=== PATIENT | male | born 1970 | race Caucasian/White ===

== ENCOUNTER 2024-03-28 09:26 | Outpatient (CLI) | payer BC, SELFPAY ==
--- NOTE | 2024-03-28 11:07 | W.ANESCHARGE ---
Anesthesia Charges Start Date/Time Anesthesia Start Date: 03/28/24 Anesthesia Start Time: 10:41 Stop Date/Time Anesthesia Stop Date: 03/28/24 Anesthesia Stop Time: 11:05
--- NOTE | 2024-03-28 11:41 | W.ANESCHARGE ---
Anesthesia Charges Start Date/Time Anesthesia Start Date: 03/28/24 Anesthesia Start Time: 10:41 Stop Date/Time Anesthesia Stop Date: 03/28/24 Anesthesia Stop Time: 11:05
== END 2024-03-28 09:27 | disposition home or self-care (01) ==
PROVIDERS: PCP Student in an Organized Health Care Education/Training Program; Visit Provider Internal Medicine Gastroenterology
DX: Z86.0101 Personal history of adenomatous and serrated colon polyps (principal); D12.8 Benign neoplasm of rectum
CPT/HCPCS: 00811; 45380; 88305; J2704

== ENCOUNTER 2024-10-18 15:00 | Emergency (ER) | payer OTHER, BC, SELFPAY ==
--- OUTSIDE RECORDS SUMMARY | 2024-10-18 15:02 | XMS_ITS | Clinical Summary ---
Author Organization [facility] Address [address] [place] [address] Care Team Providers Care Telephone Order Clerk Name Role Phone Melinda Lomas Primary Care Provider [phone] Allergies Active Allergy Reactions Criticality Noted Date Comments Lisinopril Cough Medium 08/12/2020 Medications losartan (COZAAR) 100 mg tabletIndications: Essential hypertension Take 1 Tablet (100 mg) by mouth once daily. 90 Tablet 3 12/25/19 24 Active acetaminophen 500 mg tabletIndications: S/P total right hip arthroplasty Take 2 Tablets (1,000 mg) by mouth every 6 hours. Max acetaminophen dose: 4000mg in 24 hrs. 200 Tablet 10/10/19 25 Active aspirin enteric coated 81 mg tabletIndications: S/P total right hip arthroplasty Take 1 Tablet (81 mg) by mouth two times daily with meals. Begin morning after surgery. Take for 6 weeks following surgery, do not stop taking this medication until 6 weeks after surgery for DVT/ blood clot prevention. 84 Tablet 10/10/19 25 025 Active celecoxib (CeleBREX) 100 mg capsuleIndications :S/P total right hip arthroplasty Take 1 Capsule (100 mg) by mouth two times daily with meals. Take with food. Do not take OTC NSAIDS (Ibuprofen, Aleeve, Naproxen, Motrin) while taking Celebrex. Take Protonix while taking Celebrex. 60 Capsule 10/10/19 25 Active oxyCODONE 5 mg immediate release tabletIndications: S/P total right hip arthroplasty Take 1 Tablet (5 mg) by mouth every 4 hours if needed for Pain. Take for severe post-operative pain (7-10/10). Do not take with Tramadol. 20 Tablet 10/10/19 25 Active pantoprazole 40 mg delayed-release tabletIndications: S/P total right hip arthroplasty Take 1 Tablet (40 mg) by mouth before breakfast. Take Protonix while taking Celebrex. May discontinue Protonix use once you stop taking Celebrex. 30 Tablet 10/10/19 25 Active sennosides-docusat e (Senokot-S) (8.6-50 mg) tabletIndications: S/P total right hip arthroplasty Take 1-3 Tablets by mouth 2 times daily if needed for Constipation. Take as needed for constipation. Hold for loose stool. Start with taking 1 tablet 2 times a day. If no bowel movement, increase to 2 tablets 2 times a day. If no bowel movement again, increase to 3 tablets 2 times a day. If greater than 2 bowel movements in 24 hours at any point, reduce to 1 tablet 2 times a day. 100 Tablet 10/10/19 25 Active traMADoL 50 mg tabletIndications: S/P total right hip arthroplasty Take 1 Tablet (50 mg) by mouth every 6 hours if needed for Pain. Take for moderate post-operative pain (3-6/10). Do not take with Oxycodone. 30 Tablet 10/10/19 25 Active ondansetron 4 mg disintegrating tabletIndications: S/P total right hip arthroplasty Place 1 Tablet (4 mg) on the tongue every 8 hours if needed for Nausea/Vomiting. 20 Tablet 10/10/19 25 Active cefadroxil 500 mg capsuleIndications :S/P total right hip arthroplasty Take 1 Capsule (500 mg) by mouth two times daily for 7 days. For infection prevention. 14 Capsule 10/10/19 25 025 Active Problems Problem Noted Date Diagnosed Date Avascular necrosis of bone of right hip 10/14/19 25 Suspected avascular necrosis of bone of hip, rig ht 08/05/2024 Kidney stones 08/23/2021 Overview (08/23/2021): Multiple bilateral stones - 08/2021 Adenomatous colon polyp 06/18/2020 Overview (04/01/2024): Colonoscopy 06/2020 11 mm adenoma, repeat in 3 years Colonoscopy 03/2024 hyperplastic polyp, repeat in 5 years Essential hypertension 06/03/2020 Renal stones 04/16/2017 Overview (05/27/2020): passed stones x 2, one lithotripsy Encounters Date Type Department Care Team Description 10/13/2024 8:20 AM CDT - 10/13/2024 11:59 PM CDT Hospital Encounter Jean Pierre Lund, 10/13/2024 Lab Requisition [facility] [phone] Jean Pierre Lund, 10/13/2024 Surgery [facility] [address] [facility] [address] [place] [address] Jean Pierre Lund DO RIGHT ANTERIOR TOTAL HIP ARTHROPLASTY 10/09/2024 Telephone [facility] [address] [facility] [address] [place] [address] Dorene Gregory PA Pharmacist Medication Management (cefadroxil 500 mg capsule//Sig: Take 1 Capsule (500 mg) by mouth two times daily for 7 days. For infection prevention./) 10/09/2024 Telephone [facility] [address] [address] Dorene Gregory PA Surgical Followup (post-op medication management/) 10/07/2024 1:10 PM CDT Office Visit [facility] [address] [place] [address] Melinda Lomas PA Preoperative Exam (Right Hip. 10/13/24, ) 10/07/2024 Travel 08/25/2024 Telephone [facility] [address] [facility] [address] [place] [address] Jean Pierre Lund DO Prior Authorization (AL ARTHRP ACETBLR/PROX FEM PROSTC AGRFT/ALGRFT - WAITING ON PAYER DECISION) 08/21/2024 Telephone [facility] [address] [facility] [address] [place] [address] Jean Pierre Lund, Prior Authorization (RIGHT HIP SURGICAL PROCEDURE, WORK COMP ADJUSTOR NEEDING ADDITIONAL INFORMATION) 08/19/2024 Orders Only [facility] [address] [facility] [place] [address] Melinda Lomas PA 1 scan: (1-Ord) NFLD-EKG-5.2.25 08/15/2024 1:10 PM CDT Office Visit [facility] [address] [facility] [place] [address] Melinda Lomas PA Preoperative Exam (09/01/24 Right hip replacement, Dr. Lund [phone]) 08/15/2024 Travel 08/12/2024 Telephone [facility] [address] [address] Jean Pierre Lund, 08/07/2024 2:45 PM CDT Ancillary Procedure [facility] [address] [address] 08/07/2024 Travel 08/05/2024 2:35 PM CDT Ancillary Procedure [address] [address] 08/05/2024 2:30 PM CDT Ancillary Procedure [address] [address] 08/05/2024 2:15 PM CDT Office Visit [facility] [address] [place] [address] Jean Pierre Lund, 08/05/2024 Telephone [facility] [address] [place] [address] Jean Pierre Lund, Surgery Scheduled 08/05/2024 Travel 08/01/2024 Telephone [facility] [address] [place] [address] Melinda Lomas PA Work Note (MRI referral note/) 07/30/2024 Telephone [facility] [address] [facility] [place] [address] Melinda Lomas PA Results (LABS ) 07/28/2024 3:30 PM CDT Ancillary Procedure [facility] [address] [facility] [address] 07/28/2024 2:25 PM CDT Office Visit [facility] [address] [place] [address] Melinda Lomas PA Occ Med (06/03/24 Slipped on steps putting ice out. Fell and Hit right hip pain as well as right knee pain. Pain radiates on inside, Knee just aches ) 07/28/2024 Travel from Last 3 Months Immunizations Immunization Administration Dates Next Due COVID-19 vaccine (TheraVida 30mcg/0.3mL) P F, MDV 08/03/2020,07/13/2020 Influenza, IIV4 01/31/2022 Influenza, IIV4 (=>6mos) MDV 03/26/2021,01/29/20 20 Tdap 10/31/2016 Zoster (Shingrix-RZV, recombinant) 11/12/2020, Family History Medical History Relation Name Comments Irregular heart beat Brother Lung disease Father at 65 resp iratory failure No Known Problems Mother No Known Problems Sister 1 6 sisters Relation Name Status Comments Brother Alive Father (Age 65) respirator y failure Mother Alive Sister 1 Alive Sister 2 Alive Sister 3 Alive Sister 4 Alive Sister 5 Alive Sister 6 Alive Social History Tobacco Use Types Packs/Day Years Used Date Smoking Tobacco: Former Cigarettes 0.3 28 0 05/24/1992 - 05/24/2020 Smokeless Tobacco: Never Tobacco Cessation:Counseling Given: Yes Comments:one pack/week Alcohol Use Standard Drinks/Week Comments Yes 6 (1 standard drink = 0.6 oz pur e alcohol) moderate PHQ-2 Answer Date Recorded PHQ-2 TOTAL SCORE 2 12/25/2023 Social Connections Answer Date Recorded Do you often feel lonely or isolated from those around you? 0 12/25/2023 Financial Resource Strain Answer Date R ecorded Difficulty of Paying Living Expenses 3 12/25/2023 Difficulty of Paying Living Expenses Not on file 12/25/2023 Food Insecurity Answer Date Recorded Do you worry your food will run out before you are able to buy more? 1 12/25/2023 Transportation Needs Answer Date Record ed Does lack of transportation keep you from medica l appointments? 1 12/25/2023 Does lack of transportation keep you from work, meetings or getting things that you need? 1 12/25/2023 Housing Stability Answer Date Recorded What is your housing situation today? 1 12/25/2023 Utilities Answer Date Recorded Do you have trouble paying f or utilities (for example, heat, electricity, water, phone)? 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 Not on file Not on file Not on file Obstetrics History Last Filed Vital Signs Vital Sign Reading Time Taken Comments Blood Pressure 122/80 10/07/2024 1:03 PM CDT Pulse 72 10/07/2024 1:03 PM CDT Temperature 36.8 C (98.3 F) 07/14/2021 4:44 PM CDT Respiratory Rate 16 07/14/2021 4:44 PM CDT Oxygen Saturation 98% 10/07/2024 1:03 PM CDT Inhaled Oxygen Concentration - - Weight 99.8 kg (220 lb) 10/07/2024 1:03 PM CDT Height 190.5 cm (6' 3) 12/25/2023 10:51 AM CDT Body Mass Index 27.5 12/25/2023 10:51 AM CDT Plan of Treatment Upcoming Encounters Date Type Department Care Team (Late st Contact Info) Description 10/28/2024 2:00 PM CDT Office Visit [facility] [address] [facility] [address] [place] [address] [place] [address] [place] [address] 12/09/2024 1:15 PM CDT Office Visit [facility] [address] [place] [address] Jean Pierre LundDO alexandra [address] [place] [address] Health Maintenance Due Date Last Done Comments Hepatitis B series for 19+ ( 1 of 3 - 19+ 3-dose series) 1988 Pneumococcal series for age 50+ (1 of 1 - PCV) 10/23/2019 COVID-19 vaccine series (2023- season) 2023 01/18/2023, 01/25/2022, 04/25/2021, Additional history exists Influenza Vaccine (#1) 2024 , 03/26/2021, 01/29/2020 BMI (ht and wt on same day) for age 18+ 12/24/2024 12/25/2023, 12/04/2022, 08/23/2021, Additional history exists Depression screening for age 12+ 12/25/2024 12/26/2023, 12/26/2023, 12/25/2023, Additional history exists Tetanus booster 10/31/2026 10/31/2016 Lipids for age 45-75 12/24/2028 12/25/2023, 06/03/19 21 Colonoscopy through age 75 03/28/202903/28, 03/28/2024, 03/28/2024, Additional history exists Zoster (shingles) series for age 50+ Completed 11/12/2020, 06/03/2020 Hepatitis C screening for ag e 18-79 Completed 10/18/2021 HIV for age 15-65 Completed 12/25/2023 Procedures Procedure Name Priority Date/Time Associated Diagnosis Comments LAB TRACKING EVENT Routine 10/13/2024 10 :27 AM CDT COMP METABOLIC PANEL Routine 10/07/2024 1:30 PM CDT Preop examination CBC WITH AUTO DIFFERENTIAL Routine 10/07/2024 1:30 PM CDT Preop examination HEMOGLOBIN A1C Routine 10/07/2024 1:30 PM CDT Preop examination APTT Routine 10/07/2024 1:30 PM CDT Preop examination PROTIME-INR Routine 10/07/2024 1:29 PM CDT Preop examination EKG 12 LEAD Routine 08/19/2024 11:10 AM CDT Preop examination AL READING EKG - NO CHARGE, COMP ONLY Routine 08/19/2024 11:09 AM CDT Preop examination COMP METABOLIC PANEL Routine 08/15/2024 2:00 PM CDT Preop examination CBC WITH AUTO DIFFERENTIAL Routine 08/15/2024 2:00 PM CDT Preop examination HEMOGLOBIN A1C Routine 08/15/2024 2:00 PM CDT Preop examination APTT Routine 08/15/2024 2:00 PM CDT Preop examination PROTIME-INR Routine 08/15/2024 1:59 PM CDT Preop examination MR HIP RIGHT WO Routine 08/07/2024 3:06 PM CDT Hip pain, right XR PELVIS 1 VIEW Routine 08/05/2024 2:35 PM CDT Right hip pain XR LEG LENGTH Routine 08/05/2024 2:34 PM CDT Right hip pain XR HIP 2 VIEWS WO PELVIS RIGHT Routine 07/28/2024 3:13 PM CDT Hip pain, right SCAN-COLONOSCOPY 03/28/2024 12:0 0 AM SQL MANAGER ANTI HIV 1/2 Routine 12/25/2023 11:43 AM CDT Encounter for screening for HIV LIPID PANEL W REFLEX MEASURED LDL Routine 12/25/2023 11:43 AM CDT Encounter for screening for lipoid disorders ANTI HCV Routine 10/18/2021 1:55 PM CDT Need for hepatitis C screening test SURGICAL PROCEDURE (TYPE PROCEDURE DESCRIPTION BELOW) Tier 4 Avascular necrosis of hip, right (HC) from Last 3 Months or Most Recently Relevant to Health Maintenance Results * LAB TRACKING EVENT (10/13/2024 10:27 AM CDT) Other (Other) Client Collect / Unknown 10/13/2024 10:27 AM CDT 10/13/2024 5:41 PM CDT Jean Pierre Lund DO LAB BILL ONLY Final Resu lt [facility] [address] [place] [id number], * HEMOGLOBIN A1C (10/07/2024 1:30 PM CDT) Only the most recent of2 resultswithin the time period is included. HEMOGLOBIN A1C 5.3 <5.7 % [facility] Comment: For the purpose of screening for the presence of diabetes: <5.7% Consistent with the absence of diabetes 5.7-6.4% Consistent with increased risk for diabetes (prediabetes) > or =6.5% Consistent with diabetes This assay result is consistent with a decreased risk of diabetes. Currently, no consensus exists regarding use of hemoglobin A1c for diagnosis of diabetes in children. According to [place] Diabetes [employer] (ADA) guidelines, hemoglobin A1c <7.0% represents optimal control in non- diabetic patients. Different metrics may apply to specific patient populations. Standards of Medical Care in Diabetes(ADA). Blood BLOOD SPECIMEN / Unknown 10/07/2024 1:30 PM CDT 10/07/2024 1:30 PM CDT Melinda FLORES CHEMISTRY Final Res ult [employer] [facility] [address] [place] [address], [place] [phone] [facility] [address] [place] [address] * APTT (10/07/2024 1:30 PM CDT) Only the most recent of2 resultswithin the time period is included. [facility] PARTIAL THROMBOPLASTIN TIME, ACTIVATED 29 23 - 32 sec [employer] Comment: This test has not been validated for monitoring unfractionated heparin therapy. For testing that is validated for this type of therapy, please refer to the Heparin Anti-Xa assay (test code 45494). For additional information, please refer to http://education.[employer]/faq/OMP784 (This link is being provided for informational/educational purposes only.) Blood BLOOD SPECIMEN / Unknown 10/07/2024 1:30 PM CDT 10/07/2024 1:30 PM CDT Melinda FLORES HEMATOLOGY Final Res ult [employer] [facility] [address] [place] [address], [facility] [address] [place] [address] * CBC AND DIFFERENTIAL (10/07/2024 1:30 PM CDT) Only the most recent of2 resultswithin the time period is included. [facility] WHITE BLOOD CELL COUNT 4.9 3.8 - 10.8 Thousand/u L [facility] RED BLOOD CELL COUNT 4.27 4.20 - 5.80 Million/uL [facility] HEMOGLOBIN 13.7 13.2 - 17.1 g/dL [facility] HEMATOCRIT 39.9 38.5 - 50.0 % [facility] MCV 93.4 80.0 - 100.0 fL [facility] MCH 32.1 27.0 - 33.0 pg [facility] MCHC 34.3 32.0 - 36.0 g/dL [facility] Comment: For adults, a slight decrease in the calculated MCHC value (in the range of 30 to 32 g/dL) is most likely not clinically significant; however, it should be interpreted with caution in correlation with other red cell parameters and the patient's clinical condition. RDW 12.3 11.0 - 15.0 % [facility] PLATELET COUNT 244 140 - 400 Thousand/u L [facility] MPV 10.4 7.5 - 12.5 fL [facility] ABSOLUTE NEUTROPHILS 2,808 1,500 - 7,800 cells/uL [facility] ABSOLUTE LYMPHOCYTES 1,705 850 - 3,900 cells/uL [facility] ABSOLUTE MONOCYTES 299 200 - 950 cells/uL [facility] ABSOLUTE EOSINOPHILS 49 15 - 500 cells/uL [facility] ABSOLUTE BASOPHILS 39 0 - 200 cells/uL [facility] NEUTROPHILS 57.3 % [facility] LYMPHOCYTES 34.8 % [facility] MONOCYTES 6.1 % [employer] [facility] [place] EOSINOPHILS 1.0 % [facility] BASOPHILS 0.8 % [facility] Blood BLOOD SPECIMEN / Unknown 10/07/2024 1:30 PM CDT 10/07/2024 1:30 PM CDT Melinda FLORES HEMATOLOGY Final Res ult [employer] [facility] [address] [place] [address], [facility] [address] [place] [address] * (ABNORMAL) COMP METABOLIC PANEL (10/07/2024 1:30 PM CDT) Only the most recent of2 resultswithin the time period is included. Pathologist [facility] GLUCOSE 103(H) 65 - 99 mg/dL [facility] Comment: Fasting reference interval For someone without known diabetes, a glucose value between 100 and 125 mg/dL is consistent with prediabetes and should be confirmed with a follow-up test. UREA NITROGEN (BUN) 15 7 - 25 mg/dL [facility] CREATININE 0.82 0.70 - 1.30 mg/dL [facility] EGFR 104 > OR = 60 mL/min/1. 73m2 [facility] BUN/CREATININE RATIO SEE NOTE: - (calc) [facility] Comment: Not Reported: BUN and Creatinine are within reference range. SODIUM 140 135 - 146 mmol/L [facility] POTASSIUM 4.4 3.5 - 5.3 mmol/L [facility] CHLORIDE 105 98 - 110 mmol/L [facility] CARBON DIOXIDE 29 20 - 32 mmol/L [facility] CALCIUM 9.3 8.6 - 10.3 mg/dL [facility] PROTEIN, TOTAL 6.8 6.1 - 8.1 g/dL [facility] ALBUMIN 4.5 3.6 - 5.1 g/dL [facility] GLOBULIN 2.3 1.9 - 3.7 g/dL (calc) [facility] ALBUMIN/GLOBULIN RATIO 2.0 1.0 - 2.5 (calc) [facility] BILIRUBIN, TOTAL 0.8 0.2 - 1.2 mg/dL [facility] ALKALINE PHOSPHATASE 77 35 - 144 U/L [facility] AST 19 10 - 35 U/L [facility] ALT 24 9 - 46 U/L [facility] Blood BLOOD SPECIMEN / Unknown 10/07/2024 1:30 PM CDT 10/07/2024 1:30 PM CDT us Melinda FLORES CHEMISTRY Final Res ult [employer] [facility] [address] [place] [address], [facility] [address] [place] [address] * PROTIME-INR (10/07/2024 1:29 PM CDT) Only the most recent of2 resultswithin the time period is included. INR 1.0 <1.3 10/07/2024 10:29 PM CDT [facility] PROTIME 11.7 10.6 - 12.4 sec 10/07/2024 10:29 PM CDT [facility] Blood BLOOD SPECIMEN / Unknown [facility] / Unknown 10/07/2024 1:29 PM CDT 10/07/2024 1:29 PM CDT Narrative [facility] - 10/07/2024 10:29 PM CDT Therapeutic Range 2.0-3.0 for most anticoagulated patients 2.5-3.5 or 4.0 for high risk patients The INR is only used for patients on stable oral anticoagulant therapy. It makes no significant contribution to the diagnosis or treatment of patients whose Protime is prolonged for other reasons. INR results are increased when heparin levels exceed 1.0 U/mL, which corresponds to an aPTT >125 seconds if the patient is on UFH. us Melinda FLORES HEMATOLOGY Final Res ult [facility] [address] [place] [address], * EKG 12 LEAD (08/19/2024 11:10 AM CDT) us Melinda FLORES EKG ORD Final Res ult * AL READING EKG - NO CHARGE, COMP ONLY (08/19/2024 11:09 AM CDT) us Melinda FLORES PB - PROVIDER READINGS Fi nal Result * MR HIP RIGHT WO (08/07/2024 3:06 PM CDT) Anatomical Region Laterality Modality HIPR Magnetic Resonan ce 08/08/2024 4:03 PM CDT Impressions 08/08/2024 4:03 PM CDT 1. Chronic bone lesion present within the right femoral head superiorly measuring approximally 4 cm. The lesion demonstrate some internal mineralization (possibly chondroid), lucency and also a peripheral sclerotic rim. Given that this was present on remote radiographs from 2017, it is most likely benign. There are areas of flattening of the subchondral bone plate indicating sequelae of subchondral fracture. Bone marrow edema is present within the proximal femur. 2. Cam morphology of the right proximal femur. Mild overall chondromalacia. Tearing of the anterior to anterosuperior acetabular labrum. 3. Degenerative changes within the spine. 4. No tendon tearing or bursitis. Dictated by Hans Griffith MD @ 08/08/2024 3:23:58 PM (Electronically Signed) Narrative 08/08/2024 4:03 PM CDT For Patients: As a result of the Cures Act, medical imaging exams and procedure reports are released immediately into your electronic medical record. You may view this report before your referring provider. If you have questions, please contact your health care provider. CLINICAL INDICATION: Right hip pain. Fall. Abnormal radiographs with femoral head bone lesion. COMPARISON IMAGING STUDIES: Hip radiographs from 07/28/2024. CT from 07/14/2021. Remote radiograph from 10/09/2016. TECHNICAL: Axial, sagittal and coronal PDFS small field of view images of the right hip. Coronal and axial T1 and PDFS large field of view images of the entire pelvis. 1.5 Rachel MR scanner. FINDINGS: RIGHT HIP: Cam morphology of the right proximal femur with mild osseous bump involving the upper femoral neck close to the femoral head-neck junction anterosuperiorly. No focal superior acetabular retroversion. Small amount of right hip joint fluid with synovitis. There is an approximately 4 centimeter bone lesion within the right femoral head superiorly. Radiographically, the central lesion demonstrates mineralization. There is lucency surrounding the mineralized component on the radiographs and a thin sclerotic margin more peripherally. This lesion was present on the remote radiographs from 10/09/2016. There are areas of flattening of the subchondral bone plate overlying the lesion compatible with areas of subchondral fracture. Some bone marrow edema is present within the proximal femur. Mild heterogeneity of the overlying articular cartilage compatible with cartilage softening. Mild chondromalacia of the acetabulum superiorly. There is tearing of the anterior to anterior superior acetabular labrum as seen on sagittal PD fat-sat image number 22 of series 7 for example. LEFT HIP: Cam morphology of the left proximal femur. Decreased acetabular anteversion superiorly. No left hip joint effusion. Mild articular cartilage wear. OSSEOUS STRUCTURES: As above, there is a chronic bone lesion involving the right femoral head superiorly with areas of subchondral bone plate flattening compatible with subchondral fracture. Bone marrow edema is present within the right proximal femur. MUSCULOTENDINOUS STRUCTURES AND BURSAE: Distal gluteal tendons are intact. No trochanteric bursitis. Common hamstring tendons intact. Distal iliopsoas tendons are intact. No iliopsoas bursitis. OTHER FINDINGS: Degenerative changes within the spine. No sacroiliitis. Pubic symphysis intact. INTRAPELVIC CONTENTS: No pelvic fluid collection. Tiny fat containing inguinal hernias. No change. No inguinal hernia. Procedure Note Hans Griffith MD - 08/08/2024 For Patients: As a result of the Cures Act, medical imagingexams and procedure reports are released immediately into your electronicmedical record. You may view this report before your referring provider.If you have questions, please contact your health care provider. CLINICAL INDICATION: Right hip pain. Fall. Abnormal radiographs with femoral head bonelesion. COMPARISON IMAGING STUDIES: Hip radiographs from 07/28/2024. CT from 07/14/2021. Remote radiographfrom 10/09/2016. TECHNICAL: Axial, sagittal and coronal PDFS small field of view images of the righthip. Coronal and axial T1 and PDFS large field of view images of theentire pelvis. 1.5 Rachel MR scanner. FINDINGS: RIGHT HIP: Cam morphology of the right proximal femur with mild osseous bumpinvolving the upper femoral neck close to the femoral head-neck junctionanterosuperiorly. No focal superior acetabular retroversion. Small amountof right hip joint fluid with synovitis. There is an approximately 4centimeter bone lesion within the right femoral head superiorly.Radiographically, the central lesion demonstrates mineralization. There islucency surrounding the mineralized component on the radiographs and athin sclerotic margin more peripherally. This lesion was present on theremote radiographs from 10/09/2016. There are areas of flattening of thesubchondral bone plate overlying the lesion compatible with areas ofsubchondral fracture. Some bone marrow edema is present within theproximal femur. Mild heterogeneity of the overlying articular cartilagecompatible with cartilage softening. Mild chondromalacia of the acetabulumsuperiorly. There is tearing of the anterior to anterior superioracetabular labrum as seen on sagittal PD fat-sat image number 22 of series7 for example. LEFT HIP: Cam morphology of the left proximal femur. Decreased acetabularanteversion superiorly. No left hip joint effusion. Mild articularcartilage wear. OSSEOUS STRUCTURES: As above, there is a chronic bone lesion involving the right femoral headsuperiorly with areas of subchondral bone plate flattening compatible withsubchondral fracture. Bone marrow edema is present within the rightproximal femur. MUSCULOTENDINOUS STRUCTURES AND BURSAE: Distal gluteal tendons are intact. No trochanteric bursitis. Commonhamstring tendons intact. Distal iliopsoas tendons are intact. Noiliopsoas bursitis. OTHER FINDINGS: Degenerative changes within the spine. No sacroiliitis. Pubic symphysisintact. INTRAPELVIC CONTENTS: No pelvic fluid collection. Tiny fat containing inguinal hernias. Nochange. No inguinal hernia. IMPRESSION: 1. Chronic bone lesion present within the right femoral head superiorlymeasuring approximally 4 cm. The lesion demonstrate some internalmineralization (possibly chondroid), lucency and also a peripheralsclerotic rim. Given that this was present on remote radiographs [id number], it is most likely benign. There are areas of flattening of thesubchondral bone plate indicating sequelae of subchondral fracture. [place] edema is present within the proximal femur. 2. Cam morphology of the right proximal femur. Mild overallchondromalacia. Tearing of the anterior to anterosuperior acetabularlabrum. 3. Degenerative changes within the spine. 4. No tendon tearing or bursitis. Dictated by Hans Griffith MD @ 08/08/2024 3:23:58 PM (Electronically Signed) us Melinda FLORES MR Final Res ult * XR PELVIS 1 VIEW (08/05/2024 2:35 PM CDT) Anatomical Region Laterality Modality Pelvis Digital Radiogra phy 08/08/2024 10:0 2 AM CDT Impressions 08/08/2024 10:02 AM CDT Unusual, chronic lucent lesion with central calcification in the superior right femoral head. Lack of interval collapse mitigates against avascular necrosis. Question benign lesion such as chondroblastoma, which is normally seen in younger patients. Dictated by Kilo Brooks MD @ 08/08/2024 10:02:02 AM (Electronically Signed) Narrative 08/08/2024 10:02 AM CDT For Patients: As a result of the Cures Act, medical imaging exams and procedure reports are released immediately into your electronic medical record. You may view this report before your referring provider. If you have questions, please contact your health care provider. INDICATION: Right hip pain TECHNIQUE: Upright AP view of the pelvis and hips COMPARISON: Today`s full length AP image of legs, right hip x-rays of 07/28/2024 and abdomen x-rays of 10/09/2016 FINDINGS: Unusual lucent lesion with central calcification superior right femoral head noted and similar to the 2017 abdomen x-rays. The internal matrix contains more calcifications than on the prior study. Slight flattening of the femoral head noted. Right hip joint space normal. Left hip negative. Procedure Note Kilo Brooks MD - 08/08/2024 For Patients: As a result of the Cures Act, medical imagingexams and procedure reports are released immediately into your electronicmedical record. You may view this report before your referring provider.If you have questions, please contact your health care provider. INDICATION: Right hip pain TECHNIQUE: Upright AP view of the pelvis and hips COMPARISON: Today`s full length AP image of legs, right hip x-rays of 07/28/2024 andabdomen x-rays of 10/09/2016 FINDINGS: Unusual lucent lesion with central calcification superior right femoralhead noted and similar to the 2017 abdomen x-rays. The internal matrixcontains more calcifications than on the prior study. Slight flattening ofthe femoral head noted. Right hip joint space normal. Left hip negative. IMPRESSION: Unusual, chronic lucent lesion with central calcification in the superiorright femoral head. Lack of interval collapse mitigates against avascularnecrosis. Question benign lesion such as chondroblastoma, which isnormally seen in younger patients. Dictated by Kilo Brooks MD @ 08/08/2024 10:02:02 AM (Electronically Signed) us Jean Pierre Lund DO GENERAL IMAGING Final Resu lt * XR LEG LENGTH (08/05/2024 2:34 PM CDT) Anatomical Region Laterality Modality LEGS, FEMURS Digital Radiogra phy 08/08/2024 9:52 AM CDT Addenda Addendum by Kilo Brooks MD on 08/08/2024 9:57 AM CDT For Patients: As a result of the Cures Act, medical imaging exams and procedure reports are released immediately into your electronic medical record. You may view this report before your referring provider. If you have questions, please contact your health care provider. CORRECTION: The lucent lesion with central calcification in the superior right femoral head he has chronic, seen on images dating back to 10/09/2016. Question benign lesion such as a chondroblastoma. Dictated by Kilo Brooks MD @ 08/08/2024 9:57:00 AM (Electronically Signed) Impressions 08/08/2024 9:52 AM CDT 1. Right hip AVN. 2. Leg length measurements, as above. Dictated by Kilo Brooks MD @ 08/08/2024 9:52:43 AM (Electronically Signed) Narrative 08/08/2024 9:52 AM CDT For Patients: As a result of the Cures Act, medical imaging exams and procedure reports are released immediately into your electronic medical record. You may view this report before your referring provider. If you have questions, please contact your health care provider. INDICATION: Right hip pain TECHNIQUE: Weightbearing full length AP image both legs COMPARISON: Today`s pelvis x-ray FINDINGS: Right hip AVN, as seen on the pelvis x-ray. Right leg lengths measured 98.4 cm and the left leg measured at 98.8 cm. Hip joint spaces well-maintained. Knees and ankles unremarkable. Procedure Note Kilo Brooks MD - 08/08/2024 For Patients: As a result of the Cures Act, medical imagingexams and procedure reports are released immediately into your electronicmedical record. You may view this report before your referring provider.If you have questions, please contact your health care provider. INDICATION: Right hip pain TECHNIQUE: Weightbearing full length AP image both legs COMPARISON: Today`s pelvis x-ray FINDINGS: Right hip AVN, as seen on the pelvis x-ray. Right leg lengths [id number] cm and the left leg measured at 98.8 cm. Hip joint spaceswell-maintained. Knees and ankles unremarkable. IMPRESSION: 1. Right hip AVN. 2. Leg length measurements, as above. Dictated by Kilo Brooks MD @ 08/08/2024 9:52:43 AM (Electronically Signed) us Jean Pierre Lund DO GENERAL IMAGING Edited Res ult - Final * XR HIP 2 VIEWS RIGHT (07/28/2024 3:13 PM CDT) Anatomical Region Laterality Modality HIPS, HIPR, Pelvis Computed Radi ography 07/29/2024 2:26 PM CDT Impressions 07/29/2024 2:26 PM CDT Unusual, chronic lucent lesion with central calcification in the superior right femoral head. Lack of collapse in the interval mitigates against avascular necrosis. Question benign lesion such as chondroblastoma which is normally seen in younger patients. Dictated by Kilo Brooks MD @ 07/29/2024 2:26:52 PM (Electronically Signed) Narrative 07/29/2024 2:26 PM CDT For Patients: As a result of the Cures Act, medical imaging exams and procedure reports are released immediately into your electronic medical record. You may view this report before your referring provider. If you have questions, please contact your health care provider. INDICATION: Right hip pain TECHNIQUE: AP and lateral views of the right hip COMPARISON: Abdomen/pelvis CT of 07/14/2021 and abdomen x-rays of 11/27/2016 and 10/09/2016 FINDINGS: Unusual lucent lesion with central calcification in the superior right femoral head, little changed since exams of 2016. Normal right hip joint space. Subtle flattening of the superior femoral head Procedure Note Kilo Brooks MD - 07/29/2024 For Patients: As a result of the Century Cures Act, medical imagingexams and procedure reports are released immediately into your electronicmedical record. You may view this report before your referring provider.If you have questions, please contact your health care provider. INDICATION: Right hip pain TECHNIQUE: AP and lateral views of the right hip COMPARISON: Abdomen/pelvis CT of 07/14/2021 and abdomen x-rays of 11/27/2016 and10/09/2016 FINDINGS: Unusual lucent lesion with central calcification in the superior rightfemoral head, little changed since exams of 2016. Normal right hip jointspace. Subtle flattening of the superior femoral head IMPRESSION: Unusual, chronic lucent lesion with central calcification in the superiorright femoral head. Lack of collapse in the interval mitigates againstavascular necrosis. Question benign lesion such as chondroblastoma whichis normally seen in younger patients. Dictated by Kilo Brooks MD @ 07/29/2024 2:26:52 PM (Electronically Signed) us Melinda FLORES GENERAL IMAGING Final Res ult * SCAN-COLONOSCOPY (03/28/2024 12:00 AM SQL MANAGER) us Scanner OTHER Final Result * (ABNORMAL) LIPID PANEL W REFLEX MEASURED LDL (12/25/2023 11:43 AM CDT) CHOLESTEROL,TOTAL 200(H) 100 - 199 mg/dL 12/26/2023 3:56 AM CDT [facility] Comment: Cholesterol, Total Reference Ranges Desirable <200 mg/dL Borderline 200-239 mg/dL High >=240 mg/dL TRIGLYCERIDES 106 <150 mg/dL 12/26/2023 3:56 AM CDT [facility] HDL CHOLESTEROL 68 >40 mg/dL 3:56 AM CDT [facility] NON-HDL CHOLESTEROL 132 <145 mg/dl 12/26/2023 3:56 AM CDT [facility] CHOL/HDL RATIO 2.94 <4.50 12/26/2023 3:56 AM CDT [facility] LDL CHOLESTEROL 111 <=130 mg/dL 12/26/2023 3:56 AM CDT [facility] VLDL CHOLESTEROL 21 <=30 mg/dL 12/26/2023 3:56 AM CDT [facility] PROVIDER ORDERED STATUS RANDOM 12/26/2023 3:56 AM CDT [facility] Blood BLOOD SPECIMEN / Unknown Venipuncture / Unknown 12/25/2023 11:43 AM CDT 12/25/2023 11:43 AM CDT Melinda FLORES CHEMISTRY Final Res ult Performing Organization Address City/[facility]/ZIP Co de Phone Number [facility] [address] [place] [id number], [place] * ANTI HIV 1/2 [01612.0] (12/25/2023 11:43 AM CDT) Pathologist [facility] HIV-1/HIV-2 SCREEN Non-Reacti ve Non-Reacti ve 12/26/2023 4:36 AM CDT [facility] Comment:HIV-1 p24 and HIV-1/ HIV-2 Ab Not Detected. Blood BLOOD SPECIMEN / Unknown Venipuncture / Unknown 12/25/2023 11:43 AM CDT 12/25/2023 11:43 AM CDT us Melinda FLORES SEND OUTS Final Res ult Performing Organization Address City/[facility]/ZIP Co de Phone Number [facility] [address] [place] [id number], [place] * ANTI HCV (10/18/2021 1:55 PM CDT) HEPATITIS C ANTIBODY Non-React arianna Non-React arianna 10/18/2021 11:42 PM CDT [facility] Comment:Antibodies to HCV no t detected; does not exclude the possibility of exposure to HCV. Blood BLOOD SPECIMEN / Unknown Venipuncture / Unknown 10/18/2021 1:55 PM CDT 10/18/2021 2:15 PM CDT us Mikey Curry MD SEND OUTS Final Re sult [facility] 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
[2024-10-18 15:11] VITALS: BP 155/101; PULSE 92; RESP 18; TEMP 36.8; O2SAT 100; BMI 28.2
--- NOTE | 2024-10-18 15:16 | CRLHL7_ITS ---
For Patients: As a result of the Century Cures Act, medical imaging exams and procedure reports are released immediately into your electronic medical record. You may view this report before your referring provider. If you have questions, please contact your health care provider. CLINICAL HISTORY: Right leg swelling TECHNIQUE: A compression venous ultrasound exam was performed of the right lower extremity using james-scale imaging, color Doppler and spectral Doppler analysis. FINDINGS: Sonographic imaging of the right lower extremity demonstrates normal compressibility and color Doppler venous blood flow within the common femoral vein, deep femoral vein, and the proximal greater saphenous vein. Within the thigh, the femoral vein is patent and compressible. At a lower level, the popliteal and posterior tibial veins also show normal compressibility and color Doppler venous blood flow. Limited imaging of the contralateral groin demonstrates a normal spectral waveform and color Doppler venous blood flow within the left common femoral vein. IMPRESSION: No evidence of deep vein thrombosis within the right lower extremity. Dictated by Shana Mistry MD @ 10/18/2024 4:26:26 PM (Electronically Signed)
--- NOTE | 2024-10-18 15:24 | ED.EXTPRO ---
HPI - Extremity Problem General Chief complaint: Lower Extremity Swelling Stated complaint: ANN MARIE 10/13 - Calf Swollen Time Seen by Provider: 10/18/24 15:06 Source: patient and family Mode of arrival: ambulatory Limitations: no limitations History of Present Illness HPI Narrative: Patient is a delightful 53-year-old gentleman who underwent a right sided ANN MARIE a on Sunday at the [facility] in [facility] , did the surgery, he has noted in the last 3 hours he has had significant right-sided swelling of his leg, his right foot feels swollen and tight knee also feels it is almost falling asleep and some numbness associated with it he denies any back pain, he has had no chest pain shortness of breath associated with this, there is no hemoptysis. He describes no other trauma, no past history of DVTs pulmonary emboli, quit smoking 4 years ago, is only on aspirin for prophylaxis after his hip surgery. 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 Using cane to get around Related Data Home Medications ?Medication ?Instructions ?Recorded ?Confirmed aspirin 81 mg tablet,delayed PO 10/18/24 release celecoxib 100 mg capsule 100 mg PO BID 10/18/24 10/18/24 losartan 100 mg tablet 100 mg PO DAILY 10/18/24 10/18/24 pantoprazole 40 mg tablet,delayed 40 mg PO DAILY 10/18/24 10/18/24 release Allergies Allergy/AdvReac Type Severity Reaction Status Date / Time lisinopril Allergy Mild Verified 03/28/24 11:29 Review of Systems Status of ROS: Reports: 10 or more systems reviewed and unremarkable except as noted in History and below Exam Narrative: Exam Narrative: On examination he is in no apparent distress he is pleasant and alert, right leg shows significant calf swelling in comparison to the left, he has a good DP and posterior tibial pulses, there is swelling that goes down his to his foot. His good knee flexion extension, and dorsiflexion plantar flexion was foot, I cannot augmented any back pain with moving his leg around. He has the VAC wound dressing on the right hip region. Skin reveals no redness or swelling to associated with infection. Chest is good air entry bilaterally no wheezing crackles noted, his heart sounds are normal, Const: Vital Signs, click to edit/add: Vital Signs - 24 hr 10/18/24 15:11 Temperature 98.3 F Pulse Rate [Pulse Oximeter] 92 Respiratory Rate 18 Blood Pressure [Ri ght Upper Arm] 155/101 H Pulse Oximetry 100 Oxygen Delivery Me thod Room Air Course Course ED Course: Explain to to the patient technologist did not see evidence of DVT, we will wait for the final report by Radiology but if this is negative we can discharge him home. With elevation,I will have follow up on the Ultrasound. Vital Signs Vital signs: Initial Vital Signs Temperature 98.3 F 10/18/24 15:11 Temperature Source Temporal Artery Scan 10/18/24 15:11 Pulse Rate 92 10/18/24 15:11 Pulse Rhythm Regular 10/18/24 15:11 Respiratory Rate 18 10/18/24 15:11 Blood Pressure 155/101 H 10/18/24 15:11 Blood Pressure Mean 119 H 10/18/24 15:11 Blood Pressure Position Sitting 10/18/24 15:11 Pulse Oximetry 100 10/18/24 15:11 Oxygen Delivery Method Room Air 10/18/24 15:11 Vital Signs Temperature 98.3 F 10/18/24 15:11 Pulse Rate 92 10/18/24 15:11 Respiratory Rate 18 10/18/24 15:11 Blood Pressure 155/101 H 10/18/24 15:11 Pulse Oximetry 100 10/18/24 15:11 Oxygen Delivery Method Room Air 10/18/24 15:11 Temperature 98.3 F 10/18/24 15:11 Pulse Rate 92 10/18/24 15:11 Respiratory Rate 18 10/18/24 15:11 Blood Pressure 155/101 H 10/18/24 15:11 Pulse Oximetry 100 10/18/24 15:11 Oxygen Delivery Method Room Air 10/18/24 15:11 MDM - Extremity (Nontraumatic) MDM Narrative Medical decision making narrative: I discussed with him that we just clinically cannot rule out a clot here even though I think this is likely normal swelling secondary to the surgery, as he has been up moving around in his words more than he should. I think ultrasound has been ordered, I will sign him over to the oncoming physician, for further care, Discharge Plan Discharge Clinical Impression: Localized swelling of right lower leg, Post-operative state Patient Disposition: Home w/ Parent or Adult Condition: Stable Additional Instructions: Elevation of the leg as much as possible, continue with her pain control no evidence of blood clot, follow-up as needed if increasing pain shortness of breath passing out or other issues. Activity Level: Light activity Prescriptions: No Action aspirin 81 mg tablet,delayed release (DR/EC) PO pantoprazole 40 mg tablet,delayed release (DR/EC) 40 mg PO DAILY celecoxib 100 mg capsule 100 mg PO BID losartan 100 mg tablet 100 mg PO DAILY Follow Up/Referrals: Melinda Lomas PA-C [Primary Care Provider, Family Practice] Stand Alone Forms: Awdio Info Instructions
== END 2024-10-18 16:39 | disposition home or self-care (01) ==
PROVIDERS: Emergency Provider Family Medicine; PCP Student in an Organized Health Care Education/Training Program
DX: R22.41 Localized swelling, mass and lump, right lower limb (principal)
CPT/HCPCS: 93971; 99283; 99284